=== PATIENT | female | born 1950 | race Caucasian/White ===

== ENCOUNTER → 2023-03-13 09:39 | Outpatient (BNVA) | payer MEDICARE, SELFPAY | PROVIDERS: Visit Provider Nurse Practitioner Family | DX: M17.11 Unilateral primary osteoarthritis, right knee (principal) | CPT/HCPCS: 73562 ==

== ENCOUNTER 2023-06-12 06:00 | Outpatient (RCR) | payer MEDICARE, SELFPAY | END 2023-07-10 23:59 | disposition home or self-care (01) | LOC: TPT 06:00 | PROVIDERS: Visit Provider Orthopaedic Surgery | DX: M17.11 Unilateral primary osteoarthritis, right knee (principal) | CPT/HCPCS: 97110; 97140; 97162 ==

== ENCOUNTER 2023-07-11 06:00 | Outpatient (RCR) | payer MEDICARE, SELFPAY | END 2023-08-09 23:59 | disposition home or self-care (01) | LOC: TPT 06:00 | PROVIDERS: PCP Nurse Practitioner Family; Visit Provider Orthopaedic Surgery | DX: M17.11 Unilateral primary osteoarthritis, right knee (principal) | CPT/HCPCS: 97110; 97140 ==